=== PATIENT | female | born 1960 | race Caucasian/White ===

== ENCOUNTER 2017-08-16 10:06 | Emergency (ER) | payer BC ==
[2017-08-16 10:13] VITALS: RESP 18
--- NOTE | 2017-08-16 10:32 | CPEKG ---
Heart Rate: 75 RR Interval: 800 P-R Interval: 148 QRSD Interval: 98 QT Interval: 404 QTC Interval: 452 P Mitchell: 15 QRS Mitchell: 19 T Wave Mitchell: -8 EKG Severity - BORDERLINE ECG - EKG Impression: SINUS RHYTHM EKG Impression: BORDERLINE T ABNORMALITIES, INFERIOR LEADS Electronically Signed By: Petra Mcdonnell 16-Aug-2017 15:28:35
[2017-08-16 11:42] LABS: % IMMATURE GRANULYOCYTES 0.8 % (0.0-1.1); ABSOLUTE IMMATURE GRANULOCYTES 0.06 10^3/uL (0.00-0.10); ADD DIFF? NO; ADD MORPH? NO; ADD SCAN? NO; ATYPICAL LYMPHOCYTE FLAG 0 (0-99); FRAGMENT RBC FLAG 0 (0-99); HEMATOCRIT 41.9 % (38.0-47.0); HEMOGLOBIN 14.6 g/dL (12.6-16.3); LEFT SHIFT FLG 0 (0-99); LIPEMIA HEMOLYSIS FLAG 90 (0-99); MEAN CELL HEMOGLOBIN 29.3 pg (27.9-34.1); MEAN CELL HEMOGLOBIN CONCENTR. 34.8 g/dL (32.4-36.7); MEAN PLATELET VOLUME 9.3 fL (8.7-11.7); PLATELET CLUMPS FLAG 10 (0-99); PLATELET COUNT 235 10^3/uL (150-400); RED BLOOD CELL COUNT 4.99 10^6/uL (4.18-5.33); RED CELL DISTRIBUTION WIDTH 12.8 % (11.5-15.2)
[2017-08-16 11:50] LABS: ALANINE AMINOTRANSFERASE 67 IU/L (9-52); ALBUMIN 4.4 g/dL (3.5-5.0); ALKALINE PHOSPHATASE 106 IU/L (38-126); ANION GAP 15 mEq/L (8-16); ASPARTATE AMINOTRANSFERASE 54 IU/L (14-46); BILIRUBIN,TOTAL 0.4 mg/dL (0.1-1.4); CALCIUM 9.9 mg/dL (8.5-10.4); CARBON DIOXIDE 23 mEq/l (22-31); CHLORIDE 104 mEq/L (97-110); CREATININE 0.7 mg/dL (0.6-1.0); GLOMERULAR FILTRATION RATE > 60; GLUCOSE 119 mg/dL (70-100); POTASSIUM 3.6 mEq/L (3.5-5.2); SODIUM 142 mEq/L (134-144); TOTAL PROTEIN 7.6 g/dL (6.3-8.2)
--- NOTE | 2017-08-16 11:50 | EDPHY ---
H & P Stated Complaint: fever,feels tired/achey all weekend;episode sharp L CPx15m on Sat Source: Patient Exam Limitations: No limitations - Personal History Current Tetanus Diphtheria and Acellular Pertussis (TDAP): Yes - Medical/Surgical History Other PMH: HTN (untreated). GERD - Social History Smoking Status: Never smoked Time Seen by Provider: 08/16/17 11:49 HPI/ROS: HPI: This is a 57-year-old female who presents with Chief Complaint: fever,feels tired/achey all weekend;episode sharp L CPx15m on Sat Location: Left anterior chest left arm Quality: Sharp pain Duration: Since Wednesday Signs and Symptoms: No palpitations, no shortness of breath, no nausea, no vomiting, no diaphoresis, no radiation Timing: Sudden, intermittent episodes Severity: Moderate Context: Patient reports that she was on the phone Wednesday and heard bad news that her friend son was killed at a young age. She reports that she immediately developed left anterior aching chest pain as well as a 15 minutes episode of left arm sharp pain. She reports that the pain comes and goes but she has not experienced any pain in over 24 hours. She has a history of GERD and only takes [id number] medications p.r.n. she thinks that her symptoms are related to the recent stressors but she is not sure. She has no prior history of cardiac disease is never had outpatient stress test or cardiac catheterization. She took a baby aspirin yesterday. She has borderline high cholesterol and denies any hypertension. 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 Right-hand dominant. Modifying Factors: Aspirin Comment: ROS: see HPI Constitutional: No fever, no chills, no weight loss Eyes: No blurred vision Respiratory: No shortness of breath, no cough Cardiovascular: No chest pain Gastrointestinal: No nausea, no vomiting, no diarrhea Genitourinary: No dysuria Extremities: No myalgias Neurologic: No weakness, no numbness Skin: No rashes Hematologic: No bruising, no bleeding MEDICAL/SURGICAL/SOCIAL HISTORY: Medical history: Hypertension and GERD. Does not take any regular medications. Surgical history: Denies Social history: CONSTITUTIONAL: Pleasant obese adult female, awake and alert, no obvious distress HEENT: Atraumatic and normocephalic, PERRL, EOMI. Tympanic membranes clear. Oropharynx clear, no exudate and moist pink mucosa. Airway patent. No lymphadenopathy. No meningismus. Cardiovascular: Normal S1/S2, regular rate, regular rhythm, without murmur rub or gallop. PULMONARY/CHEST: Symmetrical and left pectoral as major at insertion reproducible tenderness. Clear to auscultation bilaterally. Good air movement. No accessory muscle usage. ABDOMEN: Soft, nondistended, nontender, no rebound, no guarding, no peritoneal signs, no masses or organomegaly. No CVAT. EXTREMITIES: 2/2 pulses, strength 5/5, no deformities, no clubbing, no cyanosis or edema. NEUROLOGICAL: no focal neuro deficits. GCS 15. SKIN: Warm and dry, no erythema. no rash. Good capillary refill. (Michelle Maya) Constitutional: Initial Vital Signs Temperature (C) 37.1 C 08/16/17 10:08 Heart Rate 76 08/16/17 10:08 Respiratory Rate 18 08/16/17 10:08 Blood Pressure 174/84 H 08/16/17 10:08 O2 Sat (%) 97 08/16/17 10:08 O2 Delivery Mode Room Air Allergies/Adverse Reactions: No Known Allergies Allergy (Unverified 08/16/17 10:13) Home Medications: Medication Instructions Recorded Cefuroxime Axetil [Ceftin (*)] 250 mg PO BID #14 tab 08/16/17 Medical Decision Making Procedures: 12 lead EKG: Indication: Chest pain Rhythm: Normal sinus rhythm, rate 75 beats per minute [place]: Normal Intervals: Normal QRS: Normal ST segments: Normal INTERPRETATION: No acute ischemic changes The 12 lead EKG was interpreted by myself and with attending. (Michelle Maya) ED Course/Re-evaluation: EKG, chest x-ray, labs ordered Given aspirin upon arrival 1042 initial troponin unremarkable; will repeat in 3 hours D-dimer elevated at 0.9; CTA chest ordered to evaluate for pulmonary embolism (Michelle Maya) The patient was evaluated and managed by the physician kindergarten instructional assistant. I have reviewed this chart and I agree with the findings and plan of care as documented , as indicated by my signature. I am the secondary supervising physician. ( Petra Mcdonnell) Differential Diagnosis: Chest pain including but not limited to myocardial ischemia, pulmonary embolus, chest wall pain, pleural inflammation and pulmonary infectious causes. (Michelle Maya) - Data Points Laboratory Results: Laboratory Results 08/16/17 10:42 08/16/17 10:42 Microbiology Results: MICROBIOLOGY 08/16/17 12:05 Urine,Clean Catch Urine Culture - Preliminary Three [place] Types Medications Given: Discontinued Medications Aspirin (Aspirin) 324 mg PO EDNOW ONE Stop: 08/16/17 12:02 Last Admin: 08/16/17 12:09 Dose: 324 mg Cephalexin HCl (Keflex) 500 mg PO EDNOW ONE PRN Reason: Protocol Stop: 08/16/17 14:10 Last Admin: 08/16/17 15:00 Dose: 500 mg Pantoprazole Sodium (Protonix) 40 mg IVP EDNOW ONE Stop: 08/16/17 12:02 Last Admin: 08/16/17 12:09 Dose: 40 mg Departure - Departure Disposition: Home, Routine, Self-Care Clinical Impression: Lower urinary tract infection, Atypical chest pain, Pulmonary nodule, right Condition: Good Instructions: Chest Pain (ED), Urinary Tract Infection in Women (ED) Additional Instructions: Please take all antibiotics as directed for urinary tract infection. Drink plenty of fluids. Follow up Cardiology within 7-10 days for re-evaluation and determine outpatient candidacy for nuclear stress test. Reduce stress in her life as much as possible. Take baby aspirin daily. CTA of your chest today shows no blood clot but does show 5 mm right lower lobe calcified nodule. Please have a repeat CT imaging scan in 12 months to document interval change. Referrals: [facility] [Other] - As per Instructions Mello Negrete MD [Medical Doctor] - As per Instructions Stand Alone Forms: Work Excuse Prescriptions: Cefuroxime Axetil [Ceftin (*)] 250 mg PO BID #14 tab
[2017-08-16 12:01] LABS: TROPONIN I < 0.012 ng/mL (0.000-0.034)
[2017-08-16] MEDS ORDERED: PANTOPRAZOLE SODIUM 40 MG VIAL IVP ONE (12:01)
[2017-08-16] MEDS ORDERED: ASPIRIN 81 MG CHEWABLE TAB PO ONE (12:01)
[2017-08-16 12:56] LABS: COLOR YELLOW; LEUKOCYTE ESTERASE,URINE 2+ (NEGATIVE); NITRITE,URINE NEGATIVE (NEGATIVE)
[2017-08-16 13:10] LABS: MUCUS 2+ /lpf (NONE-1+); WBC,URINE 15-25 /hpf (0-3)
[2017-08-16 13:57] VITALS: BP 145/88
[2017-08-16] MEDS ORDERED: CEPHALEXIN 500 MG CAP PO ONE (14:09)
[2017-08-16] MEDS ORDERED: IOPAMIDOL (ISOVUE 370) 100 ML BTL IV ONE (14:15)
[2017-08-16 15:43] VITALS: PULSE 65; TEMP 98.4; O2SAT 97
== END 2017-08-16 15:43 | disposition home or self-care (01) ==
DX: R07.89 Other chest pain (principal); R91.1 Solitary pulmonary nodule; N39.0 Urinary tract infection, site not specified; I10 Essential (primary) hypertension; B95.7 Other staphylococcus as the cause of diseases classified elsewhere
CPT/HCPCS: 96374; Q9967